=== PATIENT | male | born 1965 | race Caucasian/White ===

== ENCOUNTER 2023-11-09 17:59 | Emergency (ER) | payer MEDICAID ==
[~2023-11-09] VITALS: Ht 175.3 cm; Wt 80.0 kg
[2023-11-09 18:16] VITALS: BP 148/97; PULSE 109; RESP 16; O2SAT 96
[2023-11-09 19:46] VITALS: TEMP 99
[2023-11-09] MEDS: ACETAMINOPHEN 325MG TABLET PO ONE (19:46)
[2023-11-09 20:32] LABS: BASOPHILS % 0.1 % (0.0-2.0); EOSINOPHILS % 0.2 % (0.0-5.0); HEMATOCRIT. 45.5 % (42.0-52.0); HEMOGLOBIN. 15.2 g/dL (14.0-18.0); LYMPHOCYTES % 7.5 % (20.0-50.0); MEAN CORPUSCULAR HEMOGLOBIN 29.9 pg (28.0-32.0); MEAN CORPUSCULAR HGB CONC 33.4 g/dL (31.0-37.0); MEAN CORPUSCULAR VOLUME 89.5 fL (80.0-94.0); MEAN PLATELET VOLUME 9.5 fl (7.4-10.4); MONOCYTES % 5.9 % (2.0-8.0); NEUTROPHILS % 86.3 % (40.0-76.0); PLATELET 224 x1000/uL (130-400); RED BLOOD CELL COUNT 5.09 mill/uL (4.7-6.1); RED CELL DISTRIBUTION WIDTH 13.8 % (11.6-14.6)
[2023-11-09 20:44] LABS: CALCIUM 9.7 mg/dL (8.7-10.4); CARBON DIOXIDE 30 mEq/L (21-32); CHLORIDE 101 mEq/L (98-107); CREATININE 1.2 mg/dL (0.6-1.3); GLUCOSE 114 mg/dL (70-105); POTASSIUM 3.7 mEq/L (3.5-5.1); SODIUM 138 mEq/L (136-145); UREA NITROGEN BLOOD 20 mg/dL (9-23)
[2023-11-09 21:45] LABS: CLARITY URINE CLEAR (CLEAR); COLOR URINE DARK YELLOW (YELLOW); GLUCOSE URINE NEGATIVE (NEGATIVE); KETONES URINE 1+ (NEGATIVE); LEUKOCYTE ESTERASE URINE NEGATIVE (NEGATIVE); NITRITE URINE NEGATIVE (NEGATIVE); OCCULT BLOOD URINE NEGATIVE (NEGATIVE); PH URINE 6.5 (4.5-8.0); PROTEIN URINE TRACE (NEGATIVE); SPECIFIC GRAVITY URINE 1.029 (1.005-1.030)
[2023-11-09 22:07] LABS: BACTERIA URINE NONE SEEN; RBC URINE 0-2 /hpf (0-2); SQUAMOUS EPITHELIAL CELL URINE RARE /lpf (RARE/1+); WBC URINE 0-2 /hpf (0-2)
[2023-11-09] MEDS ORDERED: IBUP-1525 MT (22:53)
[2023-11-09] MEDS ORDERED: TOPUD MT (22:53)
== END 2023-11-10 00:01 | disposition home or self-care (01) ==
LOC: ER 17:59
DX: B34.9 Viral infection, unspecified (principal); H61.23 Impacted cerumen, bilateral; F31.9 Bipolar disorder, unspecified; F20.9 Schizophrenia, unspecified; Z20.822 Contact with and (suspected) exposure to COVID-19
CPT/HCPCS: 80048; 81003; 85025; 87804 ×2; 36415; 71045; 99284; 87426; Z7610 ×2

== ENCOUNTER 2023-11-10 04:00 | Emergency (ER) | payer MEDICAID ==
[~2023-11-10] VITALS: Ht 172.7 cm; Wt 76.6 kg
[~2023-11-10 04:00] MED LIST: IBUP-1525 MT; TOPUD MT
[2023-11-10 04:06] VITALS: BP 146/83; O2SAT 98
[2023-11-10 07:00] VITALS: PULSE 104; RESP 12; TEMP 97.5
== END 2023-11-10 07:01 | disposition home or self-care (01) ==
LOC: ER 04:07
DX: Z00.00 Encounter for general adult medical examination without abnormal findings (principal); Z86.59 Personal history of other mental and behavioral disorders
CPT/HCPCS: 99281